=== PATIENT | male | born 1980 | race Caucasian/White ===

== ENCOUNTER 2021-12-16 01:45 | Inpatient (IN) | payer BC ==
[2021-12-16] MEDS ORDERED: ACETAMINOPHEN 1000 MG/100 ML BAG IVPB ONE (02:27)
[2021-12-16] MEDS ORDERED: morphine CARPU-JECT 4 MG/1 ML DISP.SYRIN IVPUSH ONE (02:29)
[2021-12-16] MEDS ORDERED: SODIUM CHLORIDE 0.9% 500 ML INFUS.BAG IV ONE (02:30)
[2021-12-16] MEDS ORDERED: morphine SULFATE 4 MG/ML VIAL ONE (02:41)
[2021-12-16 02:51] LABS: EPI CELLS 11 /uL (0-25.1); HYALINE CASTS 3 /uL (0-3.1); URINE APPEARANCE TURBID; URINE BACTERIA 0 /uL (0-1359); URINE BILIRUBIN 2+ (NEGATIVE); URINE COLOR ORANGE; URINE GLUCOSE (UA) NEGATIVE (NEGATIVE); URINE KETONE NEGATIVE (NEGATIVE); URINE LEUK ESTERASE 1+ (NEGATIVE); URINE NITRITE NEGATIVE (NEGATIVE); URINE PROTEIN 2+ (NEGATIVE); URINE RBC 18101 /uL (0-23.9); URINE WBC 63 /uL (0-25.8)
[2021-12-16 02:54] LABS: INR 1.04 (0.83-1.09)
[2021-12-16 02:55] LABS: BASO % 0.4 % (0-2.0); EOS % 1.4 % (0-4.5); HEMATOCRIT 45.4 % (35.4-49); HEMOGLOBIN 15.5 GM/dL (11.7-16.9); LYMPH % 36.7 % (8-40); MCH 32.7 pg (25.7-33.7); MCHC 34.2 g/dl (32.0-35.9); MEAN CELL VOLUME 95.6 fl (80-96); MEAN PLT VOLUME 8.6 fl (7.5-11.1); MONO % 7.4 % (3.8-10.2); NEUT % 54.1 % (42.8-82.8); PLATELET COUNT 183 10^3/uL (134-434); RBC 4.75 M/mm3 (4.00-5.60); RDW 14.8 % (11.9-15.9); WHITE BLOOD COUNT 9.4 K/mm3 (4.0-10.0)
[2021-12-16 02:57] LABS: ACTIVATED PTT 25.2 SECONDS (25.2-36.5)
[2021-12-16 03:04] LABS: CALCIUM 8.9 mg/dL (8.5-10.1)
[2021-12-16 03:05] LABS: ALBUMIN 4.4 g/dl (3.4-5.0); BLOOD UREA NITROGEN 19.4 mg/dL (7-18)
[2021-12-16 03:08] LABS: CREATININE 0.9 mg/dL (0.55-1.3)
[2021-12-16 03:10] LABS: BILIRUBIN,TOTAL 0.7 mg/dL (0.2-1); TOT PROT 7.2 g/dl (6.4-8.2)
[2021-12-16] MEDS ORDERED: ONDANSETRON 4 MG/2 ML VIAL ONE (03:24)
[2021-12-16] MEDS ORDERED: KETOROLAC TROMETHAMINE 15 MG/ML VIAL IVPUSH ONE (03:28)
[2021-12-16] MEDS ORDERED: KETOROLAC TROMETHAMINE 15 MG/ML VIAL ONE ×2 (03:30→09:28)
[2021-12-16] MEDS ORDERED: HYDROmorphone HCL CARPU-JECT 2 MG/1 ML DISP.SYRIN IVPUSH ONE (03:46)
[2021-12-16] MEDS ORDERED: ONDANSETRON 4 MG/2 ML VIAL IVPUSH ONE (03:47)
[2021-12-16] MEDS ORDERED: HYDROmorphone HCl 2 MG/ML VIAL ONE ×2 (03:53→12:30)
[2021-12-16] MEDS ORDERED: TAMSULOSIN HCL 0.4 MG CAP PO ONE (04:04)
[2021-12-16] MEDS ORDERED: TAMSULOSIN HCL 0.4 MG CAP ONE ×2 (04:07→11:17)
[2021-12-16] MEDS ORDERED: SODIUM CHLORIDE 1,000 ML IV SCH (06:00)
[2021-12-16] MEDS ORDERED: TAMSULOSIN HCL 0.4 MG CAP PO SCH (08:30)
[2021-12-16] MEDS: KETOROLAC TROMETHAMINE 15 MG/ML VIAL IVPUSH PRN (09:39)
[2021-12-16] MEDS ORDERED: CEFTRIAXONE 1 GM in DEXTROSE 5%-WATER - 50 ML IVPB SCH (10:00)
[2021-12-16] MEDS ORDERED: CEFTRIAXONE 1 GM/50 ML BAG ONE (11:17)
[2021-12-16 11:49] LABS: BASO % 0.2 % (0-2.0); EOS % 0.4 % (0-4.5); HEMOGLOBIN 15.2 GM/dL (11.7-16.9); LYMPH % 11.4 % (8-40); MCH 32.3 pg (25.7-33.7); MCHC 33.8 g/dl (32.0-35.9); MEAN CELL VOLUME 95.5 fl (80-96); MEAN PLT VOLUME 8.8 fl (7.5-11.1); MONO % 7.7 % (3.8-10.2); NEUT % 80.3 % (42.8-82.8); PLATELET COUNT 174 10^3/uL (134-434); RBC 4.71 M/mm3 (4.00-5.60); RDW 14.3 % (11.9-15.9); WHITE BLOOD COUNT 10.7 K/mm3 (4.0-10.0)
[2021-12-16 12:01] LABS: ALBUMIN 3.9 g/dl (3.4-5.0); BLOOD UREA NITROGEN 16.7 mg/dL (7-18); CALCIUM 8.3 mg/dL (8.5-10.1); MAGNESIUM 1.9 mg/dL (1.8-2.4)
[2021-12-16 12:04] LABS: CREATININE 1.3 mg/dL (0.55-1.3); PHOSPHOROUS 3.7 mg/dL (2.5-4.9)
[2021-12-16 12:06] LABS: BILIRUBIN,TOTAL 0.9 mg/dL (0.2-1); TOT PROT 6.6 g/dl (6.4-8.2)
[2021-12-16] MEDS: HYDROmorphone HCl 2 MG/ML VIAL IVPUSH PRN ×2 (12:32→18:46)
[2021-12-16] MEDS ORDERED: amLODIPine BESYLATE 5 MG TABLET (FP) PO SCH (13:30)
[2021-12-16 14:28] VITALS: BMI 27.0
[2021-12-17] MEDS ORDERED: HYDROmorphone HCl 2 MG/ML VIAL IVPB PRN (00:05)
[2021-12-17] MEDS: KETOROLAC TROMETHAMINE 15 MG/ML VIAL IVPUSH PRN (03:31)
[2021-12-17] MEDS ORDERED: PROMETHAZINE HCL 25 MG/1 ML VIAL IVPUSH PRN (07:11)
[2021-12-17] MEDS ORDERED: oxyCODONE HCL 5 MG TABLET PO PRN ×2 (07:11→08:17)
[2021-12-17] MEDS ORDERED: ONDANSETRON 4 MG/2 ML VIAL IVPUSH PRN ×2 (07:11→08:17)
[2021-12-17] MEDS ORDERED: LACTATED RINGERS SOLUTION 1,000 ML IV SCH (07:15)
[2021-12-17] MEDS ORDERED: IOHEXOL 300 MG/ML INFUS..BTL IV ONE ×2 (07:25→08:01)
[2021-12-17] MEDS ORDERED: MIDAZOLAM HCL 2 MG/2 ML SINGLE DOSE VIAL ONE (07:29)
[2021-12-17] MEDS ORDERED: PROPOFOL 20 ML ONE (07:29)
[2021-12-17] MEDS ORDERED: LIDOCAINE HCL 2% JELLY 10 ML CARTRIDGE ONE (07:59)
[2021-12-17] MEDS ORDERED: LIDOCAINE HCL 2% JELLY (5 ML/TUBE) TP ONE (08:02)
[2021-12-17] MEDS ORDERED: LIDOCAINE HCL 2% JELLY 10 ML CARTRIDGE TP ONE (08:15)
[2021-12-17] MEDS ORDERED: KETOROLAC TROMETHAMINE 15 MG/ML VIAL IVPUSH PRN (08:17)
[2021-12-17] MEDS ORDERED: SODIUM CHLORIDE 1,000 ML IV SCH (08:17)
[2021-12-17] MEDS ORDERED: TAMSULOSIN HCL 0.4 MG CAP PO SCH (08:30)
[2021-12-17] MEDS ORDERED: DEXTROSE 5%-WATER - 50 ML IVPB ONE (09:59)
[2021-12-17] MEDS ORDERED: cefTRIAXone SODIUM 1 GM VIAL ONE (09:59)
[2021-12-17] MEDS ORDERED: CEFTRIAXONE 1 GM in DEXTROSE 5%-WATER - 50 ML IVPB SCH (10:00)
[2021-12-17] MEDS ORDERED: amLODIPine BESYLATE 5 MG TABLET (FP) PO SCH (10:00)
[2021-12-17 11:29] VITALS: TEMP 98.1
[2021-12-17 15:04] VITALS: BP 129/75; PULSE 53
== END 2021-12-17 16:20 | disposition home or self-care (01) | DRG 661 ==
LOC: JER 01:45 → JERBED 04:43 → J7W 13:42
PROVIDERS: ADMIT Hospitalist
PROC: 0T778DZ Dilation of Left Ureter with Intraluminal Device, Via Natural or Artificial Opening Endoscopic (ICD-10-PCS; principal; 2021-12-17 07:30)
DX: N13.2 Hydronephrosis with renal and ureteral calculous obstruction (principal); D72.829 Elevated white blood cell count, unspecified; R31.9 Hematuria, unspecified; F17.210 Nicotine dependence, cigarettes, uncomplicated
CPT/HCPCS: 0241U-QW; 36415; 74176-TC; 76000-TC-FY; 76775-TC; 80053; 81003; 83605; 83735; 84100; 85025; 85610; 85730; 86850; 86900; 86901; 87086; 93005; 93010; 94760; 99285-25